=== PATIENT | male | born 1965 | race Caucasian/White ===

== ENCOUNTER 2016-08-02 05:57 | Emergency (ER) | payer SELFPAY ==
[2016-08-02 06:14] VITALS: BP 137/94; TEMP 98.5; O2SAT 98
[2016-08-02] MEDS ORDERED: NEO/POLY/HC OTIC SUSP 10 ML BTTL ONE (06:29)
[2016-08-02] MEDS ORDERED: NEO/POLY/HC OTIC SUSP 10 ML BTTL RIGHT_EAR ONE (06:31)
--- NOTE | 2016-08-02 06:33 | ED.PDOC ---
History of Present Illness - General Chief Complaint: ENT Problem Stated Complaint: Bug in right ear Time Seen by Provider: 08/02/16 06:31 Source: patient, RN notes reviewed, Vital Signs reviewed Exam Limitations: no limitations - History of Present Illness Initial Comments: Zac Feng 51 y/o male stated woke from his sleep feeling bug inside right ear. Timing/Duration: abrupt, this morning Severity: moderate EENT Location: ear (R) Prearrival Treatment: no prearrival treatment Improving Factors: nothing Worsening Factors: nothing Associated Symptoms: denies symptoms Allergies/Adverse Reactions: Allergies Penicillins Allergy (Verified 08/02/16 06:30) Review of Systems - Review of Systems Constitutional: States: no symptoms reported EENTM: States: see HPI Respiratory: States: no symptoms reported Cardiology: States: no symptoms reported Gastrointestinal/Abdominal: States: no symptoms reported Genitourinary: States: no symptoms reported Musculoskeletal: States: no symptoms reported Skin: States: no symptoms reported Neurological: States: no symptoms reported Endocrine: States: no symptoms reported Hematologic/Lymphatic: States: no symptoms reported Past Medical History (General) - Patient Medical History Hx Seizures: No Hx Stroke: No Hx Dementia: No Hx Asthma: No Hx of COPD: No Hx Cardiac Disorders: No Hx Congestive Heart Failure: No Hx Pacemaker: No Hx Hypertension: No Hx Thyroid Disease: No Hx Diabetes: No Hx Gastroesophageal Reflux: No Hx Renal Disease: No Hx Cancer: No Hx of HIV: No Hx Hepatitis C: No Hx MRSA: No - Vaccination History Hx Influenza Vaccination: No Hx Pneumococcal Vaccination: No - Social History Hx Tobacco Use: No - Triage Comment ED Triage Comment: Pt states he had a bug fly into his ear. Family Medical History - Family History Mother Family History: Unknown Physical Exam - Physical Exam General Appearance: Alert, Anxious, No apparent distress Eye Exam: bilateral normal Ear Exam: right ear: canal normal - with insect ear canal, foreign body - insect , bilateral ear: auricle normal Nasal Exam: normal inspection Throat Exam: normal mouth inspection, pharynx normal Neck: non-tender, full range of motion Cardiovascular/Respiratory: regular rate, rhythm, no JVD, normal breath sounds Abdominal Exam: non-tender, no organomegaly Neurologic: alert, oriented x 3 Skin Exam: normal color, warm/dry Progress - Progress Progress: 08/02/16 06:42 Vital Signs - 8 hr 08/02/16 08/02/16 06:10 06:15 Temperature 98.5 F Pulse Rate [ 78 monitor] Respiratory 16 16 Rate Blood Pressure 137/94 [Right Arm] O2 Sat by Pulse 98 Oximetry Procedures - Foreign Body Removal Foreign Body Removal: other - nsect right ear canal flush with sterile water then bug pulled out with alligator forceps shown to patient after removal ear canal reexamined noted slight abrasion with bleeding and instilled corticosporin ear drops,foreign body removed was shown to patient Departure - Departure Clinical Impression: Acute foreign body of ear canal Qualifiers: Encounter type: initial encounter Laterality: right Qualified Code(s): T16.1XXA - Foreign body in right ear, initial encounter Time of Disposition: 06:41 Disposition: Discharge to Home or Self Care Condition: Good Departure Forms: ED Discharge - Pt. Copy, Patient Portal Self Enrollment Referrals: Yaya Esposito III, MD [Primary Care Provider] - 1-2 Weeks Additional Instructions: Corticosporin ear drops 5 drops right am/pm for 5 days;Follow up with primary md08/04/2016 if needed
== END 2016-08-02 06:45 | disposition home or self-care (01) ==
LOC: ER 05:57
DX: T16.1XXA Foreign body in right ear, initial encounter (principal); Z88.0 Allergy status to penicillin

== ENCOUNTER 2016-10-27 14:58 | Emergency (ER) | payer SELFPAY ==
[2016-10-27] MEDS ORDERED: HYDROcodone 10MG/APAP 325MG 1 EA TAB PO ONE (15:33)
[2016-10-27] MEDS ORDERED: KETOROLAC TROMETHAMINE INJ 60 MG/2 ML VIAL IM ONE (15:33)
[2016-10-27] MEDS ORDERED: COLCHICINE 0.6 MG TAB PO ONE ×2 (15:35→15:40)
--- NOTE | 2016-10-27 15:39 | ED.PDOC ---
History of Present Illness - General Chief Complaint: General Stated Complaint: "gout pain" Time Seen by Provider: 10/27/16 15:02 Source: patient Exam Limitations: no limitations - History of Present Illness Initial Comments: PT PRESENTS TO THE ED WITH COMPLAINTS OF LEFT WRIST PAIN SINCE WEDNESDAY. PT REPORTS THAT PAIN IS TYPICAL OF GOUT EXACERBATIONS HE HAS HAD IN THE PAST. Timing/Duration: getting worse Severity: moderate Improving Factors: immobilization, rest Worsening Factors: movement Associated Symptoms: denies symptoms Allergies/Adverse Reactions: Allergies Penicillins Allergy (Verified 10/27/16 15:11) Home Medications: Ambulatory Orders Acetaminophen W/ Codeine [Tylenol W/ CODEINE #3] 1 ea PO Q4HR PRN #24 10/27/16 Allopurinol [Zyloprim] 100 mg PO DAILY 10/27/16 Colchicine 0.6 mg PO ONCE #1 cap 10/27/16 Ibuprofen 800 mg PO Q8HR PRN #30 tab 10/27/16 Review of Systems - Review of Systems Constitutional: Denies: chills, fever EENTM: Denies: eye pain, ear pain Respiratory: Denies: cough, short of breath Cardiology: Denies: chest pain, palpitations Musculoskeletal: States: see HPI, gout, joint pain, joint swelling Past Medical History (General) - Patient Medical History Hx Seizures: No Hx Stroke: No Hx Dementia: No Hx Asthma: No Hx of COPD: No Hx Cardiac Disorders: No Hx Congestive Heart Failure: No Hx Pacemaker: No Hx Hypertension: No Hx Thyroid Disease: No Hx Diabetes: No Hx Gastroesophageal Reflux: No Hx Renal Disease: No Hx Cancer: No Hx of HIV: No Hx Hepatitis C: No Hx MRSA: No Surgical History: other - Vaccination History Hx Influenza Vaccination: No Hx Pneumococcal Vaccination: No - Social History Hx Tobacco Use: No Hx Alcohol Use: No Hx Substance Use: No Hx Substance Use Treatment: No Hx Depression: No Family Medical History - Family History Mother Family History: Unknown Physical Exam - Physical Exam General Appearance: Alert, Anxious, No apparent distress, Well Developed, Well Groomed, Well Hydrated Eye Exam: bilateral normal Ears, Nose, Throat: hearing grossly normal Neck: normal inspection Respiratory: no respiratory distress Peripheral Pulses: radial,left: 2+ Extremity: swelling - SEVERE TENDERNESS AND MILD ERYTHEMA TO LEFT WRIST Neurologic: alert, normal mood/affect, oriented x 3 Skin Exam: normal color, warm/dry Departure - Departure Clinical Impression: Gout attack Time of Disposition: 15:35 Disposition: Transfer to Child Hosp/Cancer Departure Forms: ED Discharge - Pt. Copy, Patient Portal Self Enrollment Instructions: DI for Gout Referrals: Yaya Esposito III, MD [Primary Care Provider] - 1-2 Weeks Prescriptions: Acetaminophen W/ Codeine [Tylenol W/ CODEINE #3] 1 ea PO Q4HR PRN #24 PRN Reason: Pain Ibuprofen 800 mg PO Q8HR PRN #30 tab PRN Reason: Pain Colchicine 0.6 mg PO ONCE #1 cap Home Medications: Ambulatory Orders Acetaminophen W/ Codeine [Tylenol W/ CODEINE #3] 1 ea PO Q4HR PRN #24 10/27/16 Allopurinol [Zyloprim] 100 mg PO DAILY 10/27/16 Colchicine 0.6 mg PO ONCE #1 cap 10/27/16 Ibuprofen 800 mg PO Q8HR PRN #30 tab 10/27/16
[2016-10-27 16:16] VITALS: TEMP 97.8; O2SAT 94
[2016-10-27 16:25] VITALS: BP 144/93
== END 2016-10-27 16:25 | disposition designated cancer center or children's hospital (05) ==
LOC: ER 14:58
DX: M10.9 Gout, unspecified (principal); Z88.0 Allergy status to penicillin

== ENCOUNTER 2016-11-03 07:00 | Emergency (ER) | payer SELFPAY ==
[2016-11-03 07:27] VITALS: TEMP 99.4
[2016-11-03] MEDS ORDERED: CHLORHEXIDINE GLUCONATE 4 % 15 ML UD TOP ONE (08:19)
[2016-11-03] MEDS ORDERED: HYDROcodone 5MG/APAP 325MG 1 EA TAB PO ONE (08:21)
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
[2016-11-03] MEDS ORDERED: HYDROmorphone HCL INJ 2 MG/ML VIAL IM ONE (09:39)
[2016-11-03 11:59] VITALS: O2SAT 96
[2016-11-03 12:00] VITALS: BP 147/96
== END 2016-11-03 12:00 | disposition home or self-care (01) ==
LOC: ER 07:16
DX: S00.03XA Contusion of scalp, initial encounter (principal); S01.81XA Laceration without foreign body of other part of head, initial encounter; S00.01XA Abrasion of scalp, initial encounter; S00.10XA Contusion of unspecified eyelid and periocular area, initial encounter; G44.319 Acute post-traumatic headache, not intractable; H53.8 Other visual disturbances; Z88.0 Allergy status to penicillin; Y09 Assault by unspecified means; Y92.008 Other place in unspecified non-institutional (private) residence as the place of occurrence of the external cause
CPT/HCPCS: 70450; J1170

== ENCOUNTER 2017-01-05 10:52 | Emergency (ER) | payer SELFPAY ==
--- NOTE | 2017-01-05 12:16 | RAD ---
Frontal and lateral views of the right knee. Indication: PAIN, H/O GOUT Comparison: None. Findings: No acute fracture or malalignment. Mild tricompartmental joint space narrowing with tiny joint line osteophytes. Moderate size knee effusion with a questionable millimetric loose body within the suprapatellar recess. MRI could better evaluate as clinically indicated. Electronically signed by: Chris Estrada MD 01/05/2017 12:14 PM [facility]
--- NOTE | 2017-01-05 13:16 | ED.PDOC ---
History of Present Illness - General Stated Complaint: RIGHT KNEE PAIN Time Seen by Provider: 01/05/17 11:43 Source: patient Exam Limitations: no limitations - History of Present Illness Initial Comments: 5 D R KNEE PAIN. H/O GOUT AND THIS FEELS SIMILAR TO PREVIOUS GOUT ATTACKS. H/ O GOUT IN KNEES, WRISTS, OTHER JOINTS BESIDES GREAT TOE. ON ALLOPURINOL. Severity: severe Improving Factors: nothing Worsening Factors: movement Associated Symptoms: denies symptoms Allergies/Adverse Reactions: Allergies Penicillins Allergy (Verified 11/03/16 07:27) Home Medications: Ambulatory Orders Acetaminophen W/ Codeine [Tylenol W/ CODEINE #3] 1 ea PO Q4HR PRN #24 10/27/16 Allopurinol [Zyloprim] 100 mg PO DAILY 10/27/16 Colchicine 0.6 mg PO ONCE #1 cap 10/27/16 Ibuprofen 800 mg PO Q8HR PRN #30 tab 10/27/16 Prednisone 10 mg PO DAILY 10 Days pamela 01/05/17 Tramadol HCl [Ultram] 50 mg PO Q6HR PRN #15 tab 01/05/17 Review of Systems - Review of Systems Constitutional: States: no symptoms reported EENTM: States: no symptoms reported Respiratory: States: no symptoms reported Cardiology: States: no symptoms reported Gastrointestinal/Abdominal: States: no symptoms reported Genitourinary: States: no symptoms reported Musculoskeletal: States: gout, joint pain, joint swelling. Denies: back pain, muscle pain, neck pain Skin: States: no symptoms reported Neurological: States: no symptoms reported Endocrine: States: no symptoms reported Hematologic/Lymphatic: States: no symptoms reported All other Systems: Reviewed and Negative Past Medical History (General) - Patient Medical History Hx Seizures: No Hx Stroke: No Hx Dementia: No Hx Asthma: No Hx of COPD: No Hx Cardiac Disorders: No Hx Congestive Heart Failure: No Hx Pacemaker: No Hx Hypertension: No Hx Thyroid Disease: No Hx Diabetes: No Hx Gastroesophageal Reflux: Yes Hx Renal Disease: No Hx Cancer: No Hx of HIV: No Hx Hepatitis C: No Hx MRSA: No - Vaccination History Hx Tetanus, Diphtheria Vaccination: Yes Hx Influenza Vaccination: No Hx Pneumococcal Vaccination: No - Social History Hx Tobacco Use: No Hx Alcohol Use: No Hx Substance Use: No Hx Substance Use Treatment: No Hx Depression: Yes - no meds Family Medical History - Family History Mother Family History: Unknown Physical Exam - Physical Exam General Appearance: Alert, Obvious distress Eye Exam: bilateral normal Ears, Nose, Throat: hearing grossly normal, normal ENT inspection Neck: non-tender, full range of motion Respiratory: chest non-tender, lungs clear Cardiovascular/Chest: normal peripheral pulses, regular rate, rhythm Peripheral Pulses: dorsalis pedis,right: 2+, dorsalis pedis,left: 2+, posterior tibialis,right: 2+, posterior tibialis,left: 2+ Gastrointestinal/Abdominal: normal bowel sounds, non tender Back Exam: normal inspection, no CVA tenderness Extremity: inflammation, swelling, other - R KNEE SWOLLEN. EXQUISITELY TENDER TO LIGHT TOUCH AND PALPATION. PAINFUL TO EXTEND KNEE. Neurologic: alert, normal mood/affect Skin Exam: normal color, warm/dry Progress - Results/Orders Results/Orders: X-RAY EFFUSION, C/W GOUT. NO GOUTY TOPHI. STEROIDS AND TRAMADOL. F/U W/ PCP IF NOT IMPROVING. Departure - Departure Clinical Impression: Gout attack Disposition: Discharge to Home or Self Care Condition: Fair Instructions: DI for Gout Diet: resume usual diet Activity: increase activity as tolerated Referrals: Yaya Esposito III, MD [Primary Care Provider] - 1-2 Weeks Prescriptions: Tramadol HCl [Ultram] 50 mg PO Q6HR PRN #15 tab PRN Reason: Pain Prednisone 10 mg PO DAILY 10 Days pamela Home Medications: Ambulatory Orders Acetaminophen W/ Codeine [Tylenol W/ CODEINE #3] 1 ea PO Q4HR PRN #24 10/27/16 Allopurinol [Zyloprim] 100 mg PO DAILY 10/27/16 Colchicine 0.6 mg PO ONCE #1 cap 10/27/16 Ibuprofen 800 mg PO Q8HR PRN #30 tab 10/27/16 Prednisone 10 mg PO DAILY 10 Days pamela 01/05/17 Tramadol HCl [Ultram] 50 mg PO Q6HR PRN #15 tab 01/05/17
[2017-01-05] MEDS ORDERED: methylPREDNISolone ACETATE 80 MG/ML VIAL IM ONE (13:25)
[2017-01-05 14:23] VITALS: BP 128/78; TEMP 98.5; O2SAT 97
== END 2017-01-05 14:23 | disposition home or self-care (01) ==
LOC: ER 10:52
DX: M10.9 Gout, unspecified (principal); K21.9 Gastro-esophageal reflux disease without esophagitis; Z79.899 Other long term (current) drug therapy; Z88.0 Allergy status to penicillin
CPT/HCPCS: 73560; J1030